=== PATIENT | male | born 1975 | race Caucasian/White ===

== ENCOUNTER → 2017-06-27 18:38 | Outpatient (CLI) | payer OTHER ==
[2017-06-29 09:16] LABS: ANA REFLEX - DIRECT Negative (Negative)
[2017-06-29 22:08] LABS: CYCLIC CITRULL PEPTIDE IGG/IGA 8 units (0-19)
== END | disposition home or self-care (01) ==
LOC: D.LABREF 18:38
PROVIDERS: Family Medicine
DX: M25.50 Pain in unspecified joint (principal)